=== PATIENT | female | born 1935 | race Caucasian/White ===

== ENCOUNTER 2018-11-19 14:25 | Emergency (ER) | payer MEDICARE ==
[2018-11-19 14:48] VITALS: BP 150/89
--- NOTE | 2018-11-19 16:35 | UC ---
Back Pain HPI - HPI Summary HPI Summary: 83 yo WF presents with right chest wall pain and right wrist pain s/p fall 1 week ago, family is worried about fx so she is here to get the XR. Hurts to cough in her rihgt mid anterior chest area under the breast - History of Current Complaint Chief Complaint: UCUpperExtremity Stated Complaint: RIB AAND WRIST INJURY Time Seen by Provider: 11/19/18 15:22 Hx Obtained From: Patient Hx Last Menstrual Period: post menopause Onset/Duration: Sudden Onset, Lasting Days Timing: Lasting Days Severity Initially: Moderate Severity Currently: Moderate Pain Intensity: 3 - Allergies/Home Medications Allergies/Adverse Reactions: Allergies Allergy/AdvReac Type Severity Reaction Status Date / Time acetaminophen [From Vicodin] Allergy Hallucinati Verified 11/19/18 14:53 ons hydrocodone [From Vicodin] Allergy Hallucinati Verified 11/19/18 14:53 ons Iodinated Contrast- Oral and Allergy Hives Verified 11/19/18 14:54 IV Dye oxycodone Allergy Hallucinati Verified 11/19/18 14:54 ons Home Medications: Home Medications Acetylcysteine [Nac] 600 mg PO 11/19/18 [History] guaiFENesin [Mucinex] 600 mg PO 11/19/18 [History] PMH/Surg Hx/FS Hx/Imm Hx Previously Healthy: No - osteopenia Other History Of: Negative For: Anticoagulant Therapy - Surgical History Surgical History: None Surgery Procedure, Year, and Place: eye surgery - Social History Alcohol Use: Occasionally Substance Use Type: None Smoking Status (MU): Never Smoked Tobacco Review of Systems All Other Systems Reviewed And Are Negative: Yes Constitutional: Positive: Negative Skin: Positive: Negative Eyes: Positive: Negative ENT: Positive: Negative Respiratory: Positive: Negative Cardiovascular: Positive: Negative Gastrointestinal: Positive: Negative Genitourinary: Positive: Negative Musculoskeletal: Positive: Other: - SEE HPI Physical Exam - Summary Physical Exam Summary: Vital Signs Reviewed: Yes Appearance: Positive: No Pain Distress Skin: Positive: Warm Head/Face: Positive: Normal Head/Face Inspection Eyes: Positive: Normal ENT: Positive: Normal ENT inspection Neck: Positive: Supple Respiratory/Lung Sounds: Positive: Clear to Auscultation. Negative: Rales, Rhonchi, Wheezes Cardiovascular: Positive: Normal, RRR, S1, S2 Abdomen Description: Positive: Nontender Musculoskeletal: Positive: TTP in chestwall over rib 5-8 region, no bony tenderness over the right wrist Neurological: Positive: Normal, CN Intact II-III Psychiatric: Positive: Normal, Affect/Mood Appropriate Vital Signs: Initial Vital Signs Temp 37.4 C 11/19/18 14:40 Pulse 94 11/19/18 14:40 Resp 18 11/19/18 14:40 BP 150/89 11/19/18 14:40 Pulse Ox 97 11/19/18 14:40 Back Pain Course/Dx - Course Course Of Treatment: XR of ribs- radiologist read it as rib fx #8 but no fx in right wrist, NO evidence of PTX pain control and manual splinting, ot on Vit D and calcium supplements - Differential Dx/Diagnosis Provider Diagnosis: Right wrist sprain, Right rib fracture Discharge - Sign-Out/Discharge Documenting (check all that apply): Patient Departure All imaging exams completed and their final reports reviewed: Yes - Discharge Plan Condition: Stable Disposition: HOME Referrals: Valeria Guevara MD [Primary Care Provider] - - Billing Disposition and Condition Condition: STABLE Disposition: Home
== END 2018-11-19 16:47 | disposition home or self-care (01) ==
LOC: UCEAST 14:25
DX: S22.31XA Fracture of one rib, right side, initial encounter for closed fracture (principal); S63.501A Unspecified sprain of right wrist, initial encounter; W18.30XA Fall on same level, unspecified, initial encounter; Y92.9 Unspecified place or not applicable; Z88.5 Allergy status to narcotic agent
CPT/HCPCS: 99211; G0463

== ENCOUNTER 2019-03-06 10:29 | Emergency (ER) | payer MEDICARE ==
--- NOTE | 2019-03-06 11:06 | ED ---
Dizziness - HPI Summary HPI Summary: 84 year old female presents to the ED with a chief complaint of dizziness starting yesterday. Patient feels lightheaded and off-balanced, but is able to ambulate normally. She reports normal speech and vision. Patient also reports unusually high blood pressure yesterday, resolved today. She denies weakness. Patient's dizziness has improved slightly since onset yesterday. - History Of Current Complaint Chief Complaint: EDDizziness Stated Complaint: HIGH BLOOD PRESSURE PER PT Time Seen by Provider: 03/06/19 10:45 Hx Obtained From: Patient Onset/Duration: Still Present Timing: Constant Severity Initially: Mild Severity Currently: Mild Character: Lightheaded Associated Signs And Symptoms: Positive: Unsteady Gait. Negative: Visual Changes, Inability to Walk - Allergies/Home Medications Allergies/Adverse Reactions: Allergies Allergy/AdvReac Type Severity Reaction Status Date / Time acetaminophen [From Vicodin] Allergy Hallucinati Verified 03/06/19 10:57 ons hydrocodone [From Vicodin] Allergy Hallucinati Verified 03/06/19 10:57 ons Iodinated Contrast Media Allergy Hives Verified 03/06/19 10:57 [Iodinated Contrast- Oral and IV Dye] oxycodone Allergy Hallucinati Verified 03/06/19 10:57 ons PMH/Surg Hx/FS Hx/Imm Hx Endocrine/Hematology History: Denies: Hx Anticoagulant Therapy, Hx Diabetes, Hx Thyroid Disease Cardiovascular History: Denies: Hx Congestive Heart Failure, Hx Hypertension, Hx Pacemaker/ICD Respiratory History: Reports: Other Respiratory Problems/Disorders - JUST DX'D W /BRONCHIECTOSIS 3 MOS.AGO Denies: Hx Asthma, Hx Chronic Obstructive Pulmonary Disease (COPD) GI History: Reports: Hx Gastroesophageal Reflux Disease Denies: Hx Ulcer History: Denies: Hx Renal Disease Sensory History: Reports: Hx Contacts or Glasses Opthamlomology History: Reports: Hx Contacts or Glasses Neurological History: Denies: Hx Dementia, Hx Seizures Psychiatric History: Reports: Hx Anxiety Denies: Hx Substance Abuse - Surgical History Surgery Procedure, Year, and Place: eye surgery Infectious Disease History: No Infectious Disease History: Denies: Hx Hepatitis, Hx Human Immunodeficiency Virus (HIV), Traveled Outside the [place] in Last 30 Days - Social History Alcohol Use: Rare Substance Use Type: Reports: None Hx Tobacco Use: No Smoking Status (MU): Never Smoked Tobacco Review of Systems Negative: Fever Eyes: Negative Neurological: Other - Dizziness Negative: Weakness All Other Systems Reviewed And Are Negative: Yes Physical Exam - Summary Physical Exam Summary: Appearance: The patient is well-nourished in no acute distress and in no acute pain. Skin: The skin is warm and dry, and skin color reflects adequate perfusion. HEENT: The head is normocephalic and atraumatic. The pupils are equal and reactive. The conjunctivae are clear and without drainage. Nares are patent and without drainage. Mouth reveals moist mucous membranes, and the throat is without erythema and exudate. The external ears are intact. The ear canals are patent and without drainage. The tympanic membranes are intact. Neck: The neck is supple with full range of motion and non-tender. There are no carotid bruits. There is no neck vein distension. Respiratory: Chest is non-tender. Lungs are clear to auscultation and breath sounds are symmetrical and equal. Cardiovascular: Heart is regular rate and rhythm. There is no murmur or rub auscultated. There is no peripheral edema and pulses are symmetrical and equal. Abdomen: The abdomen is soft and non-tender. There are normal bowel sounds heard in all four quadrants and there is no organomegaly palpated. Musculoskeletal: There is no back tenderness noted. Extremities are non-tender with full range of motion. There is good capillary refill. There is no peripheral edema or calf tenderness elicited. Neurological: Patient is alert and oriented to person, place and time. The patient has symmetrical motor strength in all four extremities. Cranial nerves are grossly intact. Deep tendon reflexes are symmetrical and equal in all four extremities. Resting tremor. Psychiatric: The patient has an appropriate affect and does not exhibit any anxiety or depression. Triage Information Reviewed: Yes Vital Signs On Initial Exam: Initial Vitals Temp Pulse Resp BP Pulse Ox 96.9 F 107 20 184/107 98 03/06/19 10:30 03/06/19 10:30 03/06/19 10:30 03/06/19 10:30 03/06/19 10:30 Vital Signs Reviewed: Yes - [place] Coma Scale Best Eye Response: 4 - Spontaneous Best Motor Response: 6 - Obeys Commands Best Verbal Response: 5 - Oriented Coma Scale Total: 15 Procedures - Sedation Patient Received Moderate/Deep Sedation with Procedure: No Diagnostics - Vital Signs Vital Signs Temp Pulse Resp BP Pulse Ox 03/06/19 10:30 96.9 F 107 20 184/107 98 - Laboratory Result Diagrams: 03/06/19 11:19 03/06/19 11:19 Lab Statement: Any lab studies that have been ordered have been reviewed, and results considered in the medical decision making process. - CT Brain CT CT Interpretation Completed By: Radiologist Summary of CT Findings: IMPRESSION: Age-appropriate chronic findings include appearance consistent with chronic microvascular disease and symmetrical involutional change. An ED physician has reviewed this report. - EKG 1113 Cardiac Rate: NL - 84 bpm EKG Rhythm: Sinus Rhythm EKG Comparison: No Significant Change Summary of EKG Findings: Normal sinus rhythm at 84 bpm, normal ST, no ectopy, no STEMI. Unchanged since EKG on 07/13/16. Dr. Kim has interpreted and reviewed this EKG. Dizzy Course/Dx - Course Course Of Treatment: Ms. Finn presented with a rather vague history of some dizziness for about the last 24 hours. She was nontoxic in appearance with stable vitals and a NIH stroke scale of 0. I cannot find any focal neurological sign. Her blood pressure was mildly elevated on arrival. Labs and CT were negative. Because of elevated blood pressure and the minor symptoms I discussed situation with Dr. Hollis concerning the possibility of a stroke. He felt that it was safe for her to be discharged and have a further workup with her PCP as an outpatient. - Diagnoses Provider Diagnoses: Dizziness Discharge ED - Sign-Out/Discharge Documenting (check all that apply): Patient Departure - discharge - Discharge Plan Condition: Stable Disposition: HOME Patient Education Materials: Dizziness (ED) Referrals: Valeria Guevara MD [Primary Care Provider] - Additional Instructions: Follow up with your primary care provider in 2-3 days. Return to the Emergency Department if you experience new or worsened symptoms. - Billing Disposition and Condition Condition: STABLE Disposition: Home - Attestation Statements Document Initiated by Maggiibherson: Yes Documenting Scribe: Wilfredo Acuña Provider For Whom Beck is Documenting (Include Credential): Pranav Kim MD Scribe Attestation: Wilfredo Michele, scribed for Pranav Kim MD on 03/06/19 at 2002. Scribe Documentation Reviewed: Yes Provider Attestation: The documentation as recorded by the Wilfredo smith accurately reflects the service I personally performed and the decisions made by me, Pranav Kim MD Status of Scribe Document: Viewed
[2019-03-06 11:37] LABS: ABS Basophils 0.1 10^3/ul (0-0.2); ABS Eosinophils 0.1 10^3/ul (0-0.6); ABS Monocytes 1.1 10^3/ul (0-0.8); Eosinophil % 0.8 %; Hematocrit 42 % (35-47); Hemoglobin 13.8 g/dL (12.0-16.0); Lymphocyte % 9.3 %; Mean Corpuscular HGB Conc 33 g/dL (31-36); Mean Corpuscular Hemoglobin 29 pg (27-31); Mean Corpuscular Volume 89 fL (80-97); Mean Platelet Volume 6.1 fL (7.4-10.4); Nucleated Red Blood Cells % 0.2; Platelet Count 376 10^3/uL (150-450); Red Blood Count 4.73 10^6 /uL (3.70-4.87); Red Cell Distribution Width 14 % (10-15); White Blood Count 10.2 10^3/uL (3.5-10.8)
[2019-03-06 11:42] LABS: INR 1.08 (0.82-1.09)
[2019-03-06 11:52] LABS: Albumin 3.7 g/dL (3.2-5.2); Albumin/Globulin Ratio 1.2 (1-3); Calcium 9.3 mg/dL (8.6-10.3); EGFR African American 142.6 (>60); EGFR Non-African American 117.8 (>60); Globulin 3.2 g/dL (2-4); Potassium 4.3 mmol/L (3.5-5.0); Total Bilirubin 0.4 mg/dL (0.2-1.0); Total Protein 6.9 g/dL (6.4-8.9)
[2019-03-06 12:13] LABS: TSH (Thyroid Stimulating Horm) 4.61 mcIU/mL (0.34-5.60)
[2019-03-06 13:00] VITALS: BP 147/97
== END 2019-03-06 12:58 | disposition home or self-care (01) ==
LOC: ED 10:29
DX: R42 Dizziness and giddiness (principal); R26.81 Unsteadiness on feet; Z88.5 Allergy status to narcotic agent; Z88.6 Allergy status to analgesic agent; Z91.041 Radiographic dye allergy status
CPT/HCPCS: 36415; 70450; 80053; 83605; 84443; 84484; 85025; 85610; 93005; 99283

== ENCOUNTER 2020-10-10 09:54 | Inpatient (IN) ==
[2020-10-10] MEDS ORDERED: NS 0.9% 1000 ml BAG 1,000 ML IV ONE ×2 (10:53→13:52)
[2020-10-10] MEDS ORDERED: Albuterol/Ipratropium NEB.SOL (2.5/0.5 MG) 3 ML NEB.SOLN INH ONE (10:53)
[2020-10-10] MEDS ORDERED: Azithromycin 500 mg/250 ml NS 500 MG/250 ML BAG IVPB ONE (11:10)
[2020-10-10] MEDS ORDERED: cefTRIAXone 1 gm/50 mL NS BAG 1 GM/50 ML BAG IV ONE (11:10)
[2020-10-10 11:44] LABS: Hematocrit 36 % (35-47); Hemoglobin 12.3 g/dL (12.0-16.0); Mean Corpuscular HGB Conc 34 g/dL (31-36); Mean Corpuscular Hemoglobin 29 pg (27-31); Mean Corpuscular Volume 86 fL (80-97); Mean Platelet Volume 5.5 fL (7.4-10.4); Platelet Count 690 10^3/uL (150-450); Red Blood Count 4.21 10^6 /uL (3.70-4.87); Red Cell Distribution Width 14 % (10-15); White Blood Count 23.5 10^3/uL (3.5-10.8)
[2020-10-10 12:06] LABS: Albumin 2.7 g/dL (3.2-5.2); Albumin/Globulin Ratio 0.7 (1-3); C Reactive Protein 106.02 mg/L (<8.01); Calcium 8.6 mg/dL (8.6-10.3); EGFR Non-African American 152.1 (>60); Globulin 3.8 g/dL (2-4); Total Bilirubin 0.6 mg/dL (0.2-1.0); Total Protein 6.5 g/dL (6.4-8.9); Troponin I 0.01 ng/mL (<0.03)
[2020-10-10 12:50] LABS: ABS Basophils 0.1 10^3/ul (0-0.2); ABS Lymphocytes 0.4 10^3/ul (1.0-4.8); ABS Monocytes 2.7 10^3/ul (0-0.8); ABS Neutrophils 20.3 10^3/ul (1.5-7.7); Eosinophil % 0.1 %; Lymphocyte % 1.9 %
[2020-10-10] MEDS ORDERED: NS 0.9% 500 ml BAG 500 ML IV SCH (13:00)
[2020-10-10] MEDS ORDERED: NS 0.9% 1000 ml BAG 1,000 ML IV SCH ×2 (15:45→23:33)
[2020-10-10] MEDS ORDERED: Albuterol HFA INHALER 8 gm MDI INH PRN (15:48)
[2020-10-10 18:39] LABS: Magnesium 1.8 mg/dL (1.9-2.7)
[2020-10-10] MEDS: Enoxaparin 40 MG/0.4 ML SYR SUBCUT SCH (20:32)
[2020-10-10] MEDS ORDERED: NS 0.9% 500 ml BAG 500 ML IV ONE (23:28)
[2020-10-11] MEDS ORDERED: Albuterol/Ipratropium NEB.SOL (2.5/0.5 MG) 3 ML NEB.SOLN INH PRN (01:31)
[2020-10-11 06:25] LABS: Hematocrit 32 % (35-47); Hemoglobin 10.6 g/dL (12.0-16.0); Mean Corpuscular HGB Conc 33 g/dL (31-36); Mean Corpuscular Hemoglobin 29 pg (27-31); Mean Corpuscular Volume 88 fL (80-97); Mean Platelet Volume 5.6 fL (7.4-10.4); Platelet Count 505 10^3/uL (150-450); Red Blood Count 3.64 10^6 /uL (3.70-4.87); Red Cell Distribution Width 14 % (10-15); White Blood Count 33.2 10^3/uL (3.5-10.8)
[2020-10-11 06:55] LABS: Anion Gap 5 mmol/L (2-11); Blood Urea Nitrogen 12 mg/dL (6-24); C Reactive Protein 169.91 mg/L (<8.01); CO2 Carbon Dioxide 24 mmol/L (22-32); Calcium 8.2 mg/dL (8.6-10.3); Chloride 105 mmol/L (101-111); EGFR African American 256.5 (>60); EGFR Non-African American 211.9 (>60); Glucose 90 mg/dL (70-100); Potassium 3.5 mmol/L (3.5-5.0); Sodium 134 mmol/L (135-145)
[2020-10-11] MEDS ORDERED: NS 0.9% 250 ml 250 ML IV ONE (08:17)
[2020-10-11 08:38] LABS: ABS Basophils 0.1 10^3/ul (0-0.2); ABS Lymphocytes 1.1 10^3/ul (1.0-4.8); ABS Monocytes 3.5 10^3/ul (0-0.8); ABS Neutrophils 28.5 10^3/ul (1.5-7.7); Eosinophil % 0.1 %; Lymphocyte % 3.4 %
[2020-10-11] MEDS: Albuterol/Ipratropium NEB.SOL (2.5/0.5 MG) 3 ML NEB.SOLN INH SCH ×3 (08:52→19:50)
[2020-10-11] MEDS: Acetylcysteine 600mgCAP(RENAL) PO SCH (09:32)
[2020-10-11] MEDS: Cefepime ADVAN 1 GM in NS 0.9% 50 ML 50 ML IVPB SCH ×2 (09:33→16:23)
[2020-10-11] MEDS ORDERED: cefTRIAXone 1 gm/50 mL NS BAG 1 GM/50 ML BAG IVPB SCH (11:00)
[2020-10-11] MEDS: Azithromycin 500 mg/250 ml NS 500 MG/250 ML BAG IVPB SCH (12:32)
[2020-10-11] MEDS ORDERED: NS 0.9% 500 ml BAG 500 ML IV ONE (13:54)
[2020-10-11] MEDS: Enoxaparin 40 MG/0.4 ML SYR SUBCUT SCH (20:23)
[2020-10-11] MEDS ORDERED: Digoxin IV 0.5 MG/2 ML AMP (0.25 MG/ML) IV SLOW PU ONE ×2 (20:51→21:49)
[2020-10-11] MEDS ORDERED: Adenosine 3 MG/ML 2 ml VIAL (6 mg) ONE (21:24)
[2020-10-11] MEDS ORDERED: Magnesium Sulfate 2 gm BAG 2 GM/50 ML BAG ONE (21:28)
[2020-10-11] MEDS ORDERED: Magnesium Sulfate 2 gm BAG 2 GM/50 ML BAG IVPB ONE (21:28)
[2020-10-11] MEDS ORDERED: Metoprolol Tartrate 5 mg VIAL 5 ml VIAL (1 mg/ml) ONE ×2 (21:41→22:02)
[2020-10-11] MEDS ORDERED: Digoxin IV 0.5 MG/2 ML AMP (0.25 MG/ML) ONE (21:41)
[2020-10-11 22:01] LABS: Magnesium 1.8 mg/dL (1.9-2.7)
[2020-10-11] MEDS ORDERED: Vancomycin 750 MG in NS 0.9% 250 ml 250 ML IVPB ONE (22:21)
[2020-10-11] MEDS ORDERED: Vancomycin per Pharmacy 1 EA NOTE FOLLOW UP PRN (22:21)
[2020-10-11 22:38] LABS: ABS Basophils 0.1 10^3/ul (0-0.2); ABS Eosinophils 0.1 10^3/ul (0-0.6); ABS Lymphocytes 0.9 10^3/ul (1.0-4.8); ABS Monocytes 4.7 10^3/ul (0-0.8); ABS Neutrophils 38.7 10^3/ul (1.5-7.7); Eosinophil % 0.2 %; Hematocrit 36 % (35-47); Hemoglobin 11.4 g/dL (12.0-16.0); INR 1.57 (0.82-1.09); Mean Corpuscular HGB Conc 32 g/dL (31-36); Mean Corpuscular Hemoglobin 28 pg (27-31); Mean Corpuscular Volume 88 fL (80-97); Mean Platelet Volume 5.6 fL (7.4-10.4); Platelet Count 558 10^3/uL (150-450); Red Blood Count 4.03 10^6 /uL (3.70-4.87); Red Cell Distribution Width 14 % (10-15); White Blood Count 44.5 10^3/uL (3.5-10.8)
[2020-10-11 22:43] LABS: Albumin 2.2 g/dL (3.2-5.2); CO2 Carbon Dioxide 17 mmol/L (22-32); Calcium 7.7 mg/dL (8.6-10.3); Chloride 105 mmol/L (101-111); Sodium 131 mmol/L (135-145)
[2020-10-11 22:49] LABS: ALT 7 U/L (7-52); Albumin/Globulin Ratio 0.7 (1-3); Alkaline Phosphatase 105 U/L (35-149); Anion Gap 9 mmol/L (2-11); Blood Urea Nitrogen 15 mg/dL (6-24); EGFR African American 195.2 (>60); EGFR Non-African American 161.3 (>60); Globulin 3.2 g/dL (2-4); Glucose 99 mg/dL (70-100); Total Protein 5.4 g/dL (6.4-8.9); Troponin I 0.01 ng/mL (<0.03)
[2020-10-11 23:32] LABS: Magnesium 2.2 mg/dL (1.9-2.7)
[2020-10-12] MEDS: Albuterol/Ipratropium NEB.SOL (2.5/0.5 MG) 3 ML NEB.SOLN INH SCH ×4 (01:15→19:25)
[2020-10-12] MEDS: Cefepime ADVAN 1 GM in NS 0.9% 50 ML 50 ML IVPB SCH (01:36)
[2020-10-12 05:16] LABS: Hematocrit 33 % (35-47); Hemoglobin 10.6 g/dL (12.0-16.0); Mean Corpuscular HGB Conc 33 g/dL (31-36); Mean Corpuscular Hemoglobin 29 pg (27-31); Mean Corpuscular Volume 88 fL (80-97); Mean Platelet Volume 5.5 fL (7.4-10.4); Platelet Count 529 10^3/uL (150-450); Red Cell Distribution Width 14 % (10-15); White Blood Count 32.9 10^3/uL (3.5-10.8)
[2020-10-12 05:41] LABS: Anion Gap 6 mmol/L (2-11); Blood Urea Nitrogen 11 mg/dL (6-24); CO2 Carbon Dioxide 23 mmol/L (22-32); Calcium 8.2 mg/dL (8.6-10.3); Chloride 104 mmol/L (101-111); EGFR African American 207.8 (>60); EGFR Non-African American 171.7 (>60); Glucose 95 mg/dL (70-100); Potassium 3.4 mmol/L (3.5-5.0); Sodium 133 mmol/L (135-145)
[2020-10-12 06:15] LABS: ABS Lymphocytes 0.8 10^3/ul (1.0-4.8); ABS Monocytes 3.1 10^3/ul (0-0.8); ABS Neutrophils 28.9 10^3/ul (1.5-7.7); Eosinophil % 0.1 %; Lymphocyte % 2.6 %
[2020-10-12] MEDS ORDERED: Vancomycin 500 MG in NS 0.9% 250 ML IVPB SCH (08:00)
[2020-10-12] MEDS ORDERED: Vancomycin 750 MG in NS 0.9% 250 ML IVPB SCH (08:00)
[2020-10-12] MEDS: Acetylcysteine 600mgCAP(RENAL) PO SCH (08:58)
[2020-10-12] MEDS: Cefepime 1 GM in Dextrose 1 GM/50 ML BAG IV SCH ×2 (09:03→17:22)
[2020-10-12 09:40] LABS: Troponin I 0.22 ng/mL (<0.03)
[2020-10-12] MEDS ORDERED: Furosemide 20 mg/2 ml IV VIAL IV ONE (09:50)
[2020-10-12] MEDS ORDERED: methylPREDNISolone SOD 40 mg/ml 1 ml VIAL IV ONE (09:55)
[2020-10-12] MEDS: KCL 20 MEQ/100 ML IVPREMIX 20 MEQ/100 ML BAG IV SCH ×3 (10:09→15:24)
[2020-10-12] MEDS ORDERED: Vancomycin 1,000 MG in NS 0.9% 250 ml 250 ML IVPB ONE (10:30)
[2020-10-12] MEDS ORDERED: Vancomycin per Pharmacy 1 EA NOTE FOLLOW UP SCH (11:00)
[2020-10-12 12:49] LABS: Troponin I 0.04 ng/mL (<0.03)
[2020-10-12] MEDS ORDERED: diPHENhydraMINE IV 50 MG/ML 1 ml VIAL (BENADRYL) IV ONE (13:00)
[2020-10-12] MEDS ORDERED: Iohexol 350 (CONTRAST) 500 ML MDV IV ONE (13:18)
[2020-10-12] MEDS: Azithromycin 500 mg/250 ml NS 500 MG/250 ML BAG IVPB SCH (14:35)
[2020-10-12] MEDS: Enoxaparin 40 MG/0.4 ML SYR SUBCUT SCH (21:14)
[2020-10-13] MEDS: Cefepime 1 GM in Dextrose 1 GM/50 ML BAG IV SCH ×3 (00:26→17:20)
[2020-10-13] MEDS: Albuterol/Ipratropium NEB.SOL (2.5/0.5 MG) 3 ML NEB.SOLN INH SCH ×4 (01:02→19:22)
[2020-10-13] MEDS ORDERED: Metoprolol Tartrate 5 mg VIAL 5 ml VIAL (1 mg/ml) ONE (03:52)
[2020-10-13] MEDS ORDERED: Metoprolol Tartrate 5 mg VIAL 5 ml VIAL (1 mg/ml) IV ONE (03:52)
[2020-10-13 05:28] LABS: Hematocrit 33 % (35-47); Hemoglobin 10.9 g/dL (12.0-16.0); Mean Corpuscular HGB Conc 33 g/dL (31-36); Mean Corpuscular Hemoglobin 29 pg (27-31); Mean Corpuscular Volume 87 fL (80-97); Mean Platelet Volume 5.7 fL (7.4-10.4); Platelet Count 572 10^3/uL (150-450); Red Blood Count 3.77 10^6 /uL (3.70-4.87); Red Cell Distribution Width 14 % (10-15); White Blood Count 28.1 10^3/uL (3.5-10.8)
[2020-10-13] MEDS: Vancomycin 500 MG in NS 0.9% 250 ML IVPB SCH ×2 (05:30→18:07)
[2020-10-13 05:48] LABS: Anion Gap 5 mmol/L (2-11); Blood Urea Nitrogen 13 mg/dL (6-24); CO2 Carbon Dioxide 28 mmol/L (22-32); Calcium 8.7 mg/dL (8.6-10.3); Chloride 104 mmol/L (101-111); EGFR African American 256.5 (>60); EGFR Non-African American 211.9 (>60); Glucose 124 mg/dL (70-100); Magnesium 1.9 mg/dL (1.9-2.7); Potassium 3.9 mmol/L (3.5-5.0); Sodium 137 mmol/L (135-145)
[2020-10-13 05:51] LABS: Blood Urea Nitrogen 13 mg/dL (6-24); EGFR African American 256.5 (>60); EGFR Non-African American 211.9 (>60)
[2020-10-13] MEDS ORDERED: Vancomycin Trough Check NOTE FOLLOW UP ONE (07:30)
[2020-10-13] MEDS: Acetylcysteine 600mgCAP(RENAL) PO SCH (08:48)
[2020-10-13] MEDS: Enoxaparin 40 MG/0.4 ML SYR SUBCUT SCH (22:00)
[2020-10-14] MEDS: Cefepime 1 GM in Dextrose 1 GM/50 ML BAG IV SCH ×3 (00:06→17:20)
[2020-10-14] MEDS: Albuterol/Ipratropium NEB.SOL (2.5/0.5 MG) 3 ML NEB.SOLN INH SCH ×4 (01:13→19:35)
[2020-10-14] MEDS ORDERED: Vancomycin Trough Check NOTE FOLLOW UP ONE (05:30)
[2020-10-14 05:52] LABS: Hematocrit 33 % (35-47); Mean Corpuscular HGB Conc 33 g/dL (31-36); Mean Corpuscular Hemoglobin 29 pg (27-31); Mean Corpuscular Volume 87 fL (80-97); Mean Platelet Volume 5.4 fL (7.4-10.4); Platelet Count 518 10^3/uL (150-450); Red Blood Count 3.81 10^6 /uL (3.70-4.87); Red Cell Distribution Width 14 % (10-15); White Blood Count 19.8 10^3/uL (3.5-10.8)
[2020-10-14 06:13] LABS: Calcium 8.4 mg/dL (8.6-10.3); EGFR African American 256.4 (>60); EGFR Non-African American 211.9 (>60); Magnesium 1.8 mg/dL (1.9-2.7); Potassium 3.9 mmol/L (3.5-5.0)
[2020-10-14] MEDS: Vancomycin 500 MG in NS 0.9% 250 ML IVPB SCH (06:18)
[2020-10-14] MEDS ORDERED: Magnesium Sulfate IV 1GM/100ML 1 GM/100 ML BAG IV ONE (08:17)
[2020-10-14] MEDS: Acetylcysteine 600mgCAP(RENAL) PO SCH (08:35)
[2020-10-14] MEDS: Vancomycin 750 MG in NS 0.9% 250 ML IVPB SCH (18:32)
[2020-10-14] MEDS: Enoxaparin 40 MG/0.4 ML SYR SUBCUT SCH (20:17)
[2020-10-14] MEDS ORDERED: Benzocaine/Menthol LOZ PO PRN (21:40)
[2020-10-15] MEDS: Albuterol/Ipratropium NEB.SOL (2.5/0.5 MG) 3 ML NEB.SOLN INH SCH ×3 (00:55→14:12)
[2020-10-15] MEDS: Cefepime 1 GM in Dextrose 1 GM/50 ML BAG IV SCH ×3 (03:37→13:40)
[2020-10-15] MEDS: Vancomycin 750 MG in NS 0.9% 250 ML IVPB SCH (05:32)
[2020-10-15 05:54] LABS: Hematocrit 32 % (35-47); Hemoglobin 10.6 g/dL (12.0-16.0); Mean Corpuscular HGB Conc 33 g/dL (31-36); Mean Corpuscular Hemoglobin 29 pg (27-31); Mean Corpuscular Volume 87 fL (80-97); Mean Platelet Volume 5.5 fL (7.4-10.4); Platelet Count 492 10^3/uL (150-450); Red Blood Count 3.66 10^6 /uL (3.70-4.87); Red Cell Distribution Width 14 % (10-15); White Blood Count 15.4 10^3/uL (3.5-10.8)
[2020-10-15 05:59] LABS: ABS Eosinophils 0.1 10^3/ul (0-0.6); ABS Lymphocytes 1.1 10^3/ul (1.0-4.8); ABS Neutrophils 12.1 10^3/ul (1.5-7.7); Eosinophil % 0.6 %; Lymphocyte % 7.2 %
[2020-10-15 06:11] LABS: Anion Gap 4 mmol/L (2-11); Blood Urea Nitrogen 10 mg/dL (6-24); C Reactive Protein 66.02 mg/L (<8.01); CO2 Carbon Dioxide 33 mmol/L (22-32); Calcium 7.9 mg/dL (8.6-10.3); Chloride 100 mmol/L (101-111); EGFR African American 256.5 (>60); EGFR Non-African American 211.9 (>60); Glucose 90 mg/dL (70-100); Magnesium 1.9 mg/dL (1.9-2.7); Potassium 3.4 mmol/L (3.5-5.0); Sodium 137 mmol/L (135-145)
[2020-10-15] MEDS ORDERED: KCL 20 MEQ/100 ML IVPREMIX 20 MEQ/100 ML BAG IV ONE (07:26)
[2020-10-15] MEDS: Acetylcysteine 600mgCAP(RENAL) PO SCH (09:04)
[2020-10-15 12:21] VITALS: BP 122/60
[2020-10-16] MEDS ORDERED: Vancomycin Trough Check NOTE FOLLOW UP ONE (05:30)
== END 2020-10-15 18:20 | disposition home or self-care (01) ==
LOC: ED 09:54 → MED 09:54 → OBSVTOIN 15:41 → MED 18:27 → MEDTELE 10-12 02:10
PROVIDERS: ADMIT Hospitalist; ATTEND Student in an Organized Health Care Education/Training Program